=== PATIENT | female | born 1995 | race Two or more races ===

== ENCOUNTER 2022-01-11 18:32 | Emergency (ER) | payer OTHER ==
[~2022-01-11] VITALS: Ht 157.5 cm; Wt 91.2 kg
== END 2022-01-11 20:56 | disposition home or self-care (01) ==
LOC: ER 18:32
DX: S69.91XA Unspecified injury of right wrist, hand and finger(s), initial encounter (principal); X58.XXXA Exposure to other specified factors, initial encounter; Y93.9 Activity, unspecified; Y92.9 Unspecified place or not applicable